=== PATIENT | female | born 1965 | race Caucasian/White ===

== ENCOUNTER → 2020-07-19 | Outpatient (CLI) | payer BC, MEDICARE | LOC: RAD 07:58 | DX: K44.9 Diaphragmatic hernia without obstruction or gangrene (principal) | CPT/HCPCS: 74240 ==

== ENCOUNTER 2020-10-31 03:34 | Emergency (ER) | payer MEDICARE ==
[2020-10-31 04:30] LABS: HEMOGLOBIN 11.6 gm/dl (12.3-15.3); RED BLOOD COUNT 3.86 M/UL (4.00-5.10); WHITE BLOOD COUNT 7.5 K/UL (4.5-11.0)
== END 2020-10-31 07:10 | disposition short-term general hospital (02) ==
LOC: ER1 03:34
PROVIDERS: Internal Medicine
DX: U07.1 COVID-19 (principal); G93.9 Disorder of brain, unspecified; E03.9 Hypothyroidism, unspecified; Z88.0 Allergy status to penicillin; Z88.2 Allergy status to sulfonamides
CPT/HCPCS: 70450; 80053; 84484; 85025; 93005; 99285